=== PATIENT | female | born 1970 | race Caucasian/White ===

== ENCOUNTER 2016-07-20 17:47 | Outpatient (CLI) | payer OTHER | END 2016-07-20 17:48 | disposition home or self-care (01) | DX: J20.9 Acute bronchitis, unspecified (principal) ==

== ENCOUNTER 2017-06-18 07:54 | Outpatient (CLI) | payer OTHER ==
--- NOTE | 2017-06-19 10:22 | Mammography Report ---
DIGITAL SCREENING MAMMOGRAM: 06/21/2017 COMPARISON: 03/19/2013, 03/15/2010. TECHNIQUE: Bilateral digital CC, exaggerated CC and MLO projections. FINDINGS: The breast tissue is heterogeneously dense. There is no dominant mass, architectural disto rtion, skin thickening, suspicious microcalcifications, or interval change. IMPRESSION: NEGATIVE. BIRADS CATEGORY 1-NEGATIVE. RECOMMENDATION: SUGGEST ROUTINE ANNUAL SCREENING. STANDARD QUALIFYING STATEMENTS 1. This examination was reviewed with the aid of Computer-Aided Detection (CAD). 2. A negative or benign imaging report should not delay biopsy if clinically suspicious findings are present. Consider surgical consultation if warranted. More than 5% of cancers are not identified by i maging. 3. Dense breasts may obscure an underlying neoplasm. 10:9:26 JOB #: [id number] EXT JOB #:[id number]
== END 2017-06-18 07:55 | disposition home or self-care (01) ==
LOC: DI 07:54
PROVIDERS: ATTEND Obstetrics & Gynecology
DX: Z12.31 Encounter for screening mammogram for malignant neoplasm of breast (principal)
CPT/HCPCS: 77067

== ENCOUNTER 2017-10-02 09:15 | Outpatient (CLI) | payer OTHER ==
[2017-10-02 12:28] LABS: BASOPHILS # (AUTO) 0.1 10^3/uL (0.0-0.1); BASOPHILS % (AUTO) 1.8 %; EOSINOPHILS # (AUTO) 0.4 10^3/uL (0.0-0.7); EOSINOPHILS % (AUTO) 5.7 %; HGB - HEMOGLOBIN 14.4 g/dL (12.0-16.0); LYMPHOCYTES # (AUTO) 1.9 10^3/uL (1.5-3.5); LYMPHOCYTES % (AUTO) 26.3 %; MEAN CORPUSCULAR HEMOGLOBIN 29.9 pg (27.0-31.0); MEAN CORPUSCULAR HGB CONC 33.7 g/dL (32.0-36.0); MEAN CORPUSCULAR VOLUME 88.8 fL (81.0-99.0); MEAN PLATELET VOLUME 10.6 fL (7.9-10.8); MONOCYTES # (AUTO) 0.5 10^3/uL (0.0-1.0); MONOCYTES % (AUTO) 7.3 %; NEUTROPHILS # (AUTO) 4.3 10^3/uL (1.5-6.6); NEUTROPHILS % (AUTO) 58.9 %; PLT - PLATELET COUNT 233 10^3/uL (130-450); RED BLOOD COUNT 4.81 10^6/uL (4.20-5.40); RED CELL DISTRIBUTION WIDTH 13.9 % (12.0-15.0); WHITE BLOOD COUNT 7.3 x10^3/uL (4.8-10.8)
[2017-10-02 12:55] LABS: ALBUMIN 4.3 g/dL (3.2-5.5); ALBUMIN/GLOBULIN RATIO 1.7 (1.0-2.2); ALKALINE PHOSPHATASE 48 IU/L (42-121); ALT ALANINE AMINOTRANSFERASE 18 IU/L (10-60); AST ASPARTATE AMINOTRANSFERASE 25 IU/L (10-42); BILIRUBIN,TOTAL 0.7 mg/dL (0.2-1.0); BUN - BLOOD UREA NITROGEN 10 mg/dL (6-20); CARBON DIOXIDE - CO2 27 mmol/L (21-32); CHLORIDE 104 mmol/L (101-111); CHOL/HDL RATIO 2.6 (<4.4); CHOLESTEROL 226 mg/dL; CREATININE 0.8 mg/dL (0.4-1.0); GFR - MDRD 77 (>89); GLUCOSE 92 mg/dL (70-100); HDL CHOLESTEROL 86 mg/dL; LDL CHOLESTEROL,CALCULATED 119 mg/dL; LDL/HDL RATIO 1.4 (<4.4); SODIUM 137 mmol/L (135-145); TOTAL PROTEIN 6.9 g/dL (6.7-8.2); VLDL CHOLESTEROL 21 mg/dL
== END 2017-10-02 09:16 | disposition home or self-care (01) ==
LOC: LAB.WCP 09:15
PROVIDERS: ATTEND Family Medicine
DX: R01.1 Cardiac murmur, unspecified (principal)
CPT/HCPCS: 36415; 80053; 80061; 83721; 84443; 85025

== ENCOUNTER 2018-09-12 09:08 | Outpatient (CLI) | payer OTHER ==
--- NOTE | 2018-09-12 11:28 | XRAY Report ---
Reason: METATARSALGIA, LEFT Procedure Date: 09/12/2018 Accession Number: [id number] / [id number] Procedure: WCP - Foot 2 View LT CPT Code: FULL RESULT: EXAM: LEFT FOOT RADIOGRAPHY EXAM DATE: 09/12/2018 09:16 AM. CLINICAL HISTORY: Metatarsalgia, left. COMPARISON: None. TECHNIQUE: 2 views. FINDINGS: Bones: Mild posterior calcaneal spurring. Os trigonum is noted. Bipartite sesamoid. No fractures or bone lesions. Joints: Normal. No subluxations. Soft Tissues: Normal. No soft tissue swelling. IMPRESSION: No abnormality in the region of the metatarsals. RADIA
== END 2018-09-12 09:09 | disposition home or self-care (01) ==
LOC: DI.WCP 09:08
PROVIDERS: ATTEND Physician Assistant
DX: M77.42 Metatarsalgia, left foot (principal)

== ENCOUNTER 2019-01-21 08:00 | Outpatient (CLI) | payer OTHER ==
[2019-01-21 18:39] LABS: ALBUMIN 4.4 g/dL (3.2-5.5); ALBUMIN/GLOBULIN RATIO 1.5 (1.0-2.2); BILIRUBIN,TOTAL 1.1 mg/dL (0.2-1.0); CALCIUM 9.4 mg/dL (8.5-10.3); CREATININE 0.8 mg/dL (0.4-1.0); TOTAL PROTEIN 7.3 g/dL (6.7-8.2)
== END 2019-01-21 08:01 | disposition home or self-care (01) ==
LOC: LAB.WCP 08:00
PROVIDERS: ATTEND Family Medicine
DX: B35.1 Tinea unguium (principal)
CPT/HCPCS: 36415; 80053

== ENCOUNTER 2019-05-15 09:58 | Outpatient (CLI) | payer OTHER ==
[2019-05-15 10:18] LABS: BASOPHILS # (AUTO) 0.1 10^3/uL (0.0-0.1); BASOPHILS % (AUTO) 1.5 %; EOSINOPHILS # (AUTO) 0.7 10^3/uL (0.0-0.7); EOSINOPHILS % (AUTO) 9.9 %; HGB - HEMOGLOBIN 13.9 g/dL (12.0-16.0); LYMPHOCYTES # (AUTO) 1.9 10^3/uL (1.5-3.5); LYMPHOCYTES % (AUTO) 27.6 %; MEAN CORPUSCULAR HEMOGLOBIN 29.8 pg (27.0-31.0); MEAN CORPUSCULAR HGB CONC 32.4 g/dL (32.0-36.0); MEAN CORPUSCULAR VOLUME 92.1 fL (81.0-99.0); MEAN PLATELET VOLUME 11.1 fL (7.9-10.8); MONOCYTES # (AUTO) 0.6 10^3/uL (0.0-1.0); MONOCYTES % (AUTO) 8.4 %; NEUTROPHILS # (AUTO) 3.6 10^3/uL (1.5-6.6); NEUTROPHILS % (AUTO) 52.3 %; PLT - PLATELET COUNT 251 10^3/uL (130-450); RED BLOOD COUNT 4.66 10^6/uL (4.20-5.40); RED CELL DISTRIBUTION WIDTH 13.2 % (12.0-15.0); WHITE BLOOD COUNT 6.8 x10^3/uL (4.8-10.8)
[2019-05-15 10:38] LABS: CHOL/HDL RATIO 2.7 (<4.4); CHOLESTEROL 221 mg/dL; HDL CHOLESTEROL 83 mg/dL; LDL CHOLESTEROL,CALCULATED 128 mg/dL; LDL/HDL RATIO 1.5 (<4.4); VLDL CHOLESTEROL 10 mg/dL
== END 2019-05-15 09:59 | disposition home or self-care (01) ==
LOC: LAB 09:58
PROVIDERS: ATTEND Physician Assistant Medical
DX: J45.909 Unspecified asthma, uncomplicated (principal); R10.13 Epigastric pain; R01.1 Cardiac murmur, unspecified
CPT/HCPCS: 36415; 80061; 83721; 84443; 85025

== ENCOUNTER 2019-07-02 07:47 | Outpatient (CLI) | payer OTHER | END 2019-07-02 07:48 | disposition home or self-care (01) | LOC: DI 07:47 | PROVIDERS: ATTEND Physician Assistant Medical | DX: R01.1 Cardiac murmur, unspecified (principal); I34.0 Nonrheumatic mitral (valve) insufficiency | CPT/HCPCS: 93306 ==

== ENCOUNTER 2019-07-02 07:50 | Outpatient (CLI) | payer OTHER ==
--- NOTE | 2019-07-06 08:32 | Mammography Report ---
Reason: ROUTINE MAMMO Procedure Date: 07/02/2019 Accession Number: [id number] / [id number] Procedure: [facility] - Screening Mammo w/[facility] CPT Code: Final Report FULL RESULT: EXAM: Screening Mammo w/[facility] DATE: 07/02/2019 9:14 AM CLINICAL HISTORY: Screening encounter. TECHNIQUE: (B) - Bilateral CC, laterally exaggerated CC, MLO views were obtained. COMPARISON: 06/18/2017 through 03/15/2010. PARENCHYMAL PATTERN: (D) - The breast(s) demonstrate(s) heterogeneously dense fibroglandular parenchyma. FINDINGS: There are no suspicious masses, calcifications, or areas of distortion. IMPRESSION: Negative examination. BI-RADS category 1. RECOMMENDATION: (ANNUAL) - Recommend routine annual screening mammography. BI-RADS CATEGORY: (1) - Negative. STANDARD QUALIFYING STATEMENTS: 1. This examination was not reviewed with the aid of Computer-Aided Detection (CAD). 2. A negative or benign imaging report should not preclude biopsy if clinically suspicious findings are present. 3. Dense breasts may obscure an underlying neoplasm. 4. This examination was reviewed with the aid of 3D breast imaging (tomosynthesis).
== END 2019-07-02 07:51 | disposition home or self-care (01) ==
LOC: DI 07:50
DX: Z12.31 Encounter for screening mammogram for malignant neoplasm of breast (principal)
CPT/HCPCS: 77063; 77067

== ENCOUNTER 2019-12-06 09:14 | Outpatient (CLI) | payer OTHER | END 2019-12-06 09:15 | disposition home or self-care (01) | LOC: RT 09:14 | PROVIDERS: ATTEND Physician Assistant Medical | DX: J45.909 Unspecified asthma, uncomplicated (principal) | CPT/HCPCS: 94010 ==

== ENCOUNTER 2020-03-22 18:09 | Outpatient (CLI) | payer OTHER ==
--- NOTE | 2020-03-23 10:12 | XRAY Report ---
PROCEDURE: Chest 2 View X-Ray INDICATIONS: COUGH TECHNIQUE: 2 view(s) of the chest. COMPARISON: None. FINDINGS: Surgical changes and devices: None. Lungs and pleura: No pleural effusions or pneumothorax. Increased microvascular markings in bilatera l hilar region are seen with mild bronchial wall thickening. No focal infiltrate. Mediastinum: Mediastinal contours are normal. Heart size is normal. Bones and chest wall: No suspicious bony abnormalities. Soft tissues appear unremarkable. IMPRESSION: Suggestion of mild reactive airway disease such as bronchitis or asthma. No focal infiltr ate. Reviewed by: Jeronimo Claire MD on 03/23/2020 10:11 AM PDT Approved by: Jeronimo Claire MD on 03/23/2020 10:11 AM PDT Station ID: [id number]
== END 2020-03-22 18:10 | disposition home or self-care (01) ==
LOC: DI 18:09
PROVIDERS: ATTEND Nurse Practitioner Family
DX: R91.8 Other nonspecific abnormal finding of lung field (principal)
CPT/HCPCS: 71046

== ENCOUNTER 2020-07-21 16:41 | Outpatient (CLI) | payer OTHER ==
--- NOTE | 2020-07-22 09:03 | XRAY Report ---
PROCEDURE: Chest 2 View X-Ray INDICATIONS: COUGH TECHNIQUE: 2 view(s) of the chest. COMPARISON: None. FINDINGS: Surgical changes and devices: None. Lungs and pleura: No pleural effusions or pneumothorax. Lungs are clear. Mediastinum: Mediastinal contours are normal. Heart size is normal. Bones and chest wall: No suspicious bony abnormalities. Soft tissues appear unremarkable. IMPRESSION: No acute cardiopulmonary process. Reviewed by: Jeronimo Claire MD on 07/22/2020 9:02 AM [facility] Approved by: Jeronimo Claire MD on 07/22/2020 9:02 AM [facility] Station ID: [id number]
== END 2020-07-21 23:59 | disposition home or self-care (01) ==
LOC: DI.N 16:41
PROVIDERS: ATTEND Family Medicine
DX: R05 Cough (principal); R06.00 Dyspnea, unspecified; Z20.828 Contact with and (suspected) exposure to other viral communicable diseases
CPT/HCPCS: 87275; 87276

== ENCOUNTER 2020-09-03 08:00 | Outpatient (CLI) | payer OTHER | END 2020-09-03 23:59 | disposition home or self-care (01) | LOC: LAB.R 08:00 | PROVIDERS: ATTEND Physician Assistant Medical | DX: J45.901 Unspecified asthma with (acute) exacerbation (principal); Z20.822 Contact with and (suspected) exposure to COVID-19 | CPT/HCPCS: 87275; 87276 ==

== ENCOUNTER 2020-11-10 19:25 | Emergency (ER) | payer OTHER ==
--- OUTSIDE RECORDS SUMMARY | 2020-11-10 19:47 | EXTERNAL MEDICAL SUMMARY RPT | Continuity of Care Document ---
:1970 Demographics Phone Unavailable Preferred Language Unknown Marital Status Unknown Episcopal Affiliation Unknown Race Unknown Ethnic Group Unknown Author Organization [place] Address [address] [place] [address] Phone Social History date description facility [id number]
[2020-11-10] MEDS ORDERED: ALBUTEROL NEB 2.5 MG/3 ML INH STA (20:11)
[2020-11-10] MEDS ORDERED: IPRATROPIUM 0.2 MG/ML NEB INH STA (20:11)
--- NOTE | 2020-11-10 20:18 | ED Physician Documentation ---
History of Present Illness - Stated complaint Stated Complaint: SOA - Chief complaint Chief Complaint: Resp - Additonal information Additional information: 50-year-old female presents the emergency department for evaluation of her asthma exacerbation. She reports a longstanding history of asthma that has been typically very difficult to control. She is currently taking Spiriva and Advair daily. Her flush tester recently started her on Dupixent and she received her fourth injection last week. She states that over the last week she has been having to use her nebulizers at home at least 2-3 times a day. She is short of breath with exertion and has a wet cough. She denies any fevers. non smoker meds: spiriva, advair, singulair, dupixent Review of Systems Constitutional: denies: Fever, Chills Eyes: reports: Reviewed and negative Ears: reports: Reviewed and negative Nose: reports: Reviewed and negative Throat: reports: Reviewed and negative Cardiac: denies: Chest pain / pressure, Palpitations Respiratory: reports: Dyspnea, Cough, Wheezing. denies: Hemoptysis GI: denies: Abdominal Pain, Abdominal Swelling, Nausea : denies: Dysuria, Frequency, Hesitancy Skin: denies: Rash, Lesions PD PAST MEDICAL HISTORY - Past Medical History Past Medical History: Yes Respiratory: Asthma - Past Surgical History Past Surgical History: Yes - Present Medications Home Medications: Ambulatory Orders Medication Instructions Recorded Confirmed ALPRAZolam [Alprazolam] 0.5 mg PO 11/10/20 Albuterol 2.5 mg INH Q4H PRN 11/10/20 11/10/20 Albuterol 2.5 mg INH Q4H PRN #30 ml 11/10/20 Azithromycin [Zithromax] 0 mg PO DAILY #6 tablet 11/10/20 Dupilumab [Dupixent Syringe] 300 mg SQ 11/10/20 Montelukast [Singulair] 10 mg PO QPM 11/10/20 11/10/20 Tiotropium [place] [Spiriva] 1 puffs INH DAILY 11/10/20 11/10/20 predniSONE [Deltasone] 40 mg PO DAILY 4 Days #8 tablet 11/10/20 - Allergies Allergies/Adverse Reactions: Allergies Allergy/AdvReac Type Severity Reaction Status Date / Time No Known Drug Allergies Allergy Verified 11/10/20 19:31 - Social History Does the pt smoke?: No Smoking Status: Never smoker Does the pt drink ETOH?: Yes - Immunizations Immunizations are current?: Yes PD ED PE EXPANDED - General General: Alert, No acute distress - Cardiac Cardiac: Regular Rate, Radial strong equal, Cap refill < 2 sec. No: Murmur Present - Respiratory Respiratory: Wheezing (rhoncorous upper air with diffuse expiratory wheezing lower lung wilkes), Rhonchi. No: Stridor - Abdomen Abdomen: Normal Bowel sounds. No: Tender to palpation - Derm Derm: Normal color, Warm and dry. No: Rash - Extremities Extremities: Normal. No: Deformity, Tenderness - Neuro Neuro: Alert and Oriented X 3, CNII-XII intact - GCS Eye Opening: Spontaneous Motor: Obeys Commands Verbal: Oriented Total: 15 Results - Vitals Vitals: Vital Signs - 24 hr 11/10/20 11/10/20 11/10/20 19:31 20:10 21:05 Temperature 36.6 C Heart Rate 88 75 67 Respiratory 16 20 Rate Blood Pressure 126/84 H O2 Saturation 98 100 Oxygen O2 Source Room air - Rads (name of study) CXR Radiology: Final report received (No acute cardiopulmonary process.) PD MEDICAL DECISION MAKING - ED course Complexity details: reviewed results, re-evaluated patient, d/w patient ED course: 50-year-old female presents the emergency department for evaluation of worsening asthma. She has a longstanding history of asthma and is managed currently on Advair and Spiriva but recently started Dupixent. Over the last week she has been having to use her nebulizers at home 2-3 times a day. She also has a new wet productive cough. Radiology report reads chest x-ray is negative however I feel that there is likely a small linear opacity in the right lower lobe that may reflect an early pneumonia. Patient does not have fever. Given this she will be started on a course of azithromycin. I will also start her on a 5-day course of oral steroids prednisone (first dose given in the ED) Patient was given albuterol and Atrovent here in the emergency department and following these nebulizers she had marked improvement in her symptoms. Covid screen pending. Emergent return precautions discussed Departure - Departure Disposition: 01 Home, Self Care Clinical Impression: Asthma with acute exacerbation in adult Qualifiers: Asthma severity: moderate Asthma persistence: persistent Qualified Code(s): J45.41 - Moderate persistent asthma with (acute) exacerbation Condition: Stable Record reviewed to determine appropriate education?: Yes Follow-Up: Maegan Sunshine PA-C [Primary Care Provider] - Prescriptions: Albuterol 2.5 mg INH Q4H PRN #30 ml PRN Reason: Wheezing predniSONE [Deltasone] 40 mg PO DAILY 4 Days #8 tablet Azithromycin [Zithromax] 0 mg PO DAILY #6 tablet Comments: You were seen in the emergency department today for cough, shortness of breath and wheeze. As we discussed the radiologist interprets your x-ray is normal however I do feel that there is a linear opacity in the right lower lung that I feel is consistent with an early pneumonia. Because of this I have written a prescription for an antibiotic called azithromycin. Your first dose was given here in the emergency department. Please fill the Z-Rojelio tomorrow and take as directed. I also feel that you are having an acute asthma exacerbation despite being on the Dupixent. You were given your first dose of oral steroids here in the emergency department. Please fill the remaining prescription for an additional 4 days. I have written a prescription for albuterol nebulizer solution. I do recommend that you use this once or twice a day before you use your Atrovent. This is a quick acting nebulizer and will allow the long acting nebulizer to be more effective. If you feel that your cough or shortness of breath is worsening despite the steroids, antibiotics and use of the nebulizer at home please return immediately to the emergency department.
[2020-11-10] MEDS ORDERED: predniSONE 20 MG TABLET PO STA (20:28)
--- NOTE | 2020-11-10 20:31 | XRAY Report ---
PROCEDURE: Chest 1 View X-Ray INDICATIONS: SOA TECHNIQUE: One view of the chest was acquired. COMPARISON: Chest radiographs 07/21/2020 FINDINGS: Surgical changes and devices: None. Lungs and pleura: No pleural effusions or pneumothorax. Lungs are clear. Mediastinum: Mediastinal contours appear normal. Heart size is normal. Bones and chest wall: No suspicious bony lesions. Overlying soft tissues appear unremarkable. IMPRESSION: No acute cardiopulmonary abnormality. Reviewed by: Derrick Mendoza MD on 11/10/2020 8:30 PM PDT Approved by: Derrick Mendoza MD on 11/10/2020 8:30 PM PDT Station ID: [id number]
[2020-11-10] MEDS ORDERED: AZITHROMYCIN 250 MG TABLET PO STA ×2 (20:39→20:40)
[2020-11-10 21:41] VITALS: BP 142/79
== END 2020-11-10 21:40 | disposition home or self-care (01) ==
LOC: ED 19:25
DX: J45.41 Moderate persistent asthma with (acute) exacerbation (principal); Z20.822 Contact with and (suspected) exposure to COVID-19
CPT/HCPCS: 71045; 87635; 94640; 99284; A9270; J7512

== ENCOUNTER 2021-04-04 08:56 | Day surgery (SDC) | payer OTHER ==
[2021-04-04] MEDS ORDERED: LACTATED RINGERS 1,000 ML IV ONE ×2 (09:00→12:45)
[2021-04-04] MEDS ORDERED: ALBUTEROL NEB 2.5 MG/3 ML INH ONE (09:31)
[2021-04-04] MEDS ORDERED: MIDAZOLAM 2 MG/2 ML VIAL ONE ×5 (11:08→11:48)
[2021-04-04] MEDS ORDERED: fentaNYL 250 MCG/5 ML VIAL ONE (11:08)
[2021-04-04 12:50] VITALS: BP 119/81
== END 2021-04-04 08:57 | disposition home or self-care (01) ==
LOC: SDS 08:56
PROVIDERS: ATTEND Surgery
PROC: 0DBK8ZZ Excision of Ascending Colon, Via Natural or Artificial Opening Endoscopic (ICD-10-PCS; principal; 2021-04-04 10:00)
DX: Z12.11 Encounter for screening for malignant neoplasm of colon (principal); D12.2 Benign neoplasm of ascending colon; K57.30 Diverticulosis of large intestine without perforation or abscess without bleeding; K64.8 Other hemorrhoids; I34.0 Nonrheumatic mitral (valve) insufficiency; J45.909 Unspecified asthma, uncomplicated
CPT/HCPCS: 45380; J3010; J7120

== ENCOUNTER 2021-05-04 08:26 | Outpatient (CLI) | payer OTHER ==
[2021-05-04 08:59] LABS: BASOPHILS # (AUTO) 0.1 10^3/uL (0.0-0.1); BASOPHILS % (AUTO) 1.8 %; EOSINOPHILS # (AUTO) 0.3 10^3/uL (0.0-0.7); HCT - HEMATOCRIT 46.4 % (37.0-47.0); HGB - HEMOGLOBIN 14.8 g/dL (12.0-16.0); LYMPHOCYTES # (AUTO) 1.5 10^3/uL (1.5-3.5); MEAN CORPUSCULAR HEMOGLOBIN 29.8 pg (27.0-31.0); MEAN CORPUSCULAR HGB CONC 31.9 g/dL (32.0-36.0); MEAN CORPUSCULAR VOLUME 93.5 fL (81.0-99.0); MEAN PLATELET VOLUME 10.7 fL (7.9-10.8); MONOCYTES # (AUTO) 0.5 10^3/uL (0.0-1.0); MONOCYTES % (AUTO) 8.3 %; NEUTROPHILS # (AUTO) 3.7 10^3/uL (1.5-6.6); NEUTROPHILS % (AUTO) 59.6 %; PLT - PLATELET COUNT 269 10^3/uL (130-450); RED BLOOD COUNT 4.96 10^6/uL (4.20-5.40); WHITE BLOOD COUNT 6.2 x10^3/uL (4.8-10.8)
[2021-05-04 09:14] LABS: ALBUMIN 4.2 g/dL (3.2-5.5); ALBUMIN/GLOBULIN RATIO 1.6 (1.0-2.2); ALKALINE PHOSPHATASE 60 IU/L (42-121); ALT ALANINE AMINOTRANSFERASE 22 IU/L (10-60); AST ASPARTATE AMINOTRANSFERASE 26 IU/L (10-42); BILIRUBIN,TOTAL 0.8 mg/dL (0.2-1.0); BUN - BLOOD UREA NITROGEN 10 mg/dL (6-20); CALCIUM 9.4 mg/dL (8.5-10.3); CARBON DIOXIDE - CO2 29 mmol/L (21-32); CHLORIDE 105 mmol/L (101-111); CHOL/HDL RATIO 2.5 (<4.4); CHOLESTEROL 223 mg/dL; CREATININE 0.8 mg/dL (0.4-1.0); GFR - MDRD 76 (>89); GLUCOSE 91 mg/dL (70-100); HDL CHOLESTEROL 89 mg/dL; LDL CHOLESTEROL,CALCULATED 120 mg/dL; LDL/HDL RATIO 1.3 (<4.4); POTASSIUM 4.5 mmol/L (3.5-5.0); SODIUM 141 mmol/L (135-145); TOTAL PROTEIN 6.9 g/dL (6.7-8.2); TRIGLYCERIDES 68 mg/dL; VLDL CHOLESTEROL 14 mg/dL
[2021-05-04 09:25] LABS: THYROID STIMULATING HORMONE 1.8 uIU/mL (0.34-5.60)
== END 2021-05-04 08:27 | disposition home or self-care (01) ==
LOC: LAB 08:26
PROVIDERS: ATTEND Physician Assistant Medical
DX: Z00.00 Encounter for general adult medical examination without abnormal findings (principal)
CPT/HCPCS: 36415; 80053; 80061; 83721; 84443; 85025

== ENCOUNTER 2021-05-11 13:36 | Outpatient (CLI) | payer OTHER ==
--- NOTE | 2021-05-12 09:11 | Mammography Report ---
BILATERAL DIGITAL SCREENING MAMMOGRAM 3D/2D: 05/11/2021 CLINICAL: Routine screening. Comparison is made to exams dated: 07/02/2019 mammogram, 06/18/2017 mammogram, and 03/19/2013 mammogram - [facility]. The tissue of both breasts is heterogeneously dense. This may lower the sensitivity of mammography. No significant masses, calcifications, or other findings are seen in either breast. There has been no significant interval change. IMPRESSION: NEGATIVE There is no mammographic evidence of malignancy. A 1 year screening mammogram is recommended. This exam was interpreted at Station ID: [id number]. NOTE: For mammograms, a report in lay terms will be sent to the patient. Approximately 15% of breast malignancies will not be visualized mammographically. In the management of a palpable breast mass, a negative mammogram must not discourage biopsy of a clinically suspicious lesion. Electronically Signed By: Rashel Delarosa M.D. slc/penrad:05/11/2021 17:01:40 ACR BI-RADS Category 1: Negative 3341F PARENCHYMAL PATTERN: (D) - The breast(s) demonstrate(s) heterogeneously dense fibroglandular dony castañeda. BI-RADS CATEGORY: (1) - 1 RECOMMENDATION: (ANNUAL) - Recommend routine annual screening mammography. [id number] 1 year screening LATERALITY: (B)
== END 2021-05-11 13:37 | disposition home or self-care (01) ==
LOC: DI 13:36
DX: Z12.31 Encounter for screening mammogram for malignant neoplasm of breast (principal)

== ENCOUNTER 2021-06-26 18:28 | Outpatient (CLI) | payer OTHER ==
--- NOTE | 2021-06-27 10:12 | XRAY Report ---
PROCEDURE: Foot 3 View LT INDICATIONS: CONTUSION OF L 5TH TOE TECHNIQUE: 3 views of the foot were acquired. COMPARISON: Left foot radiographs 09/12/2018. FINDINGS: Bones: No acute fractures or dislocations. No suspicious bony lesions. Small posterior and plantar calcaneal enthesophytes. Soft tissues: Soft tissue tissue edema is seen in the fifth toe. IMPRESSION: No acute osseous abnormality. If there is clinical concern or persistent symptoms, additional imaging such as repeat radiographs or advanced imaging (e.g. CT, MRI) may be helpful for further evaluation. Reviewed by: Derrick Mendoza MD on 06/27/2021 10:11 AM [facility] Approved by: Derrick Mendoza MD on 06/27/2021 10:11 AM [facility] Station ID: [id number]
== END 2021-06-26 23:59 | disposition home or self-care (01) ==
LOC: DI.N 18:28
PROVIDERS: ATTEND Physician Assistant Medical
DX: S90.122A Contusion of left lesser toe(s) without damage to nail, initial encounter (principal)

== ENCOUNTER 2021-08-23 19:07 | Outpatient (CLI) | payer OTHER ==
--- NOTE | 2021-08-24 16:08 | XRAY Report ---
PROCEDURE: Chest 2 View X-Ray INDICATIONS: MITRAL VALVE REGURGITATION TECHNIQUE: 2 view(s) of the chest. COMPARISON: Chest x-ray 11/10/2020 FINDINGS: Surgical changes and devices: None. Lungs and pleura: No pleural effusions or pneumothorax. Lungs are clear. Mediastinum: Mediastinal contours are normal. Heart size is normal. Bones and chest wall: No suspicious bony abnormalities. Soft tissues appear unremarkable. IMPRESSION: No acute pulmonary process. Reviewed by: So Deal MD on 08/24/2021 4:07 PM [facility] Approved by: So Deal MD on 08/24/2021 4:07 PM [facility] Station ID: [id number]
== END 2021-08-23 23:59 | disposition home or self-care (01) ==
LOC: DI.N 19:07
PROVIDERS: ATTEND Family Medicine
DX: R06.2 Wheezing (principal); J18.9 Pneumonia, unspecified organism; Z20.822 Contact with and (suspected) exposure to COVID-19

== ENCOUNTER 2021-09-01 07:45 | Outpatient (CLI) | payer OTHER | END 2021-09-01 07:46 | disposition home or self-care (01) | LOC: DI 07:45 | PROVIDERS: ATTEND Physician Assistant Medical | DX: I34.0 Nonrheumatic mitral (valve) insufficiency (principal) | CPT/HCPCS: 93306 ==

== ENCOUNTER 2021-11-14 00:01 | Outpatient (CLI) | payer OTHER | END 2021-11-14 23:59 | disposition home or self-care (01) | LOC: LAB.N 00:01 | PROVIDERS: ATTEND Registered Nurse | DX: J45.51 Severe persistent asthma with (acute) exacerbation (principal); J18.9 Pneumonia, unspecified organism; Z20.822 Contact with and (suspected) exposure to COVID-19 ==

== ENCOUNTER 2021-12-01 12:25 | Outpatient (CLI) | payer OTHER ==
--- NOTE | 2021-12-01 14:38 | XRAY Report ---
PROCEDURE: Chest 2 View X-Ray INDICATIONS: PERSISTENT COUGH TECHNIQUE: 2 view(s) of the chest. COMPARISON: None. FINDINGS: Surgical changes and devices: None. Lungs and pleura: No pleural effusions or pneumothorax. Lungs are clear. Mediastinum: Mediastinal contours are normal. Heart size is normal. Bones and chest wall: No suspicious bony abnormalities. Soft tissues appear unremarkable. IMPRESSION: Normal two-view chest x-ray Reviewed by: Juan José Walden MD on 12/01/2021 1:37 PM [facility] Approved by: Juan José Walden MD on 12/01/2021 1:37 PM [facility] Station ID: [id number]
== END 2021-12-01 12:26 | disposition home or self-care (01) ==
LOC: DI.N 12:25
PROVIDERS: ATTEND Physician Assistant Medical
DX: R05.3 Chronic cough (principal)

== ENCOUNTER 2021-12-06 10:57 | Emergency (ER) | payer OTHER ==
[2021-12-06] MEDS ORDERED: SODIUM CHLORIDE INHALATION 3 ML NEB INH STA (12:28)
--- NOTE | 2021-12-06 12:31 | ED Physician Documentation ---
PD HPI DYSPNEA - Stated complaint Stated Complaint: SOA - Chief complaint Chief Complaint: Resp - History obtained from History obtained from: Patient - Additional information Additional information: 51-year-old woman with severe persistent asthma albeit never admitted for same. 3 weeks ago got sick with cough productive of green sputum and shortness of breath and wheezing. Subsequently was on a course of doxycycline and prednisone and she improved but has been lingering and developed a fever again 5 days ago despite a negative chest x-ray 6 days ago. Still has significant cough but is minimally productive at this point. Denies pedal edema or calf pain. No shortness of breath. 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 She went to urgent care today and was referred here for further evaluation and treatment. Review of Systems Constitutional: reports: Reviewed and negative Throat: reports: Reviewed and negative Cardiac: reports: Reviewed and negative Respiratory: reports: Dyspnea, Cough PD PAST MEDICAL HISTORY - Past Medical History Cardiovascular: None Respiratory: Asthma Endocrine/Autoimmune: None GI: Hemorrhoids : None HEENT: None Psych: None Musculoskeletal: None Derm: None - Past Surgical History Past Surgical History: Yes HEENT: Other - Present Medications Home Medications: Ambulatory Orders Medication Instructions Recorded Confirmed Albuterol 2.5 mg INH Q4H PRN 11/10/20 04/04/21 Albuterol 2.5 mg INH Q4H PRN #30 ml 11/10/20 04/04/21 Dupilumab [Dupixent Syringe] 300 mg SQ MAINTENANCE.IV 11/10/20 04/04/21 Montelukast [Singulair] 10 mg PO QPM 11/10/20 04/04/21 Tiotropium Roby [Spiriva] 1 puffs INH DAILY 11/10/20 04/04/21 Fluticasone/Salmeterol [Advair Hfa 8 gm IH DAILY 04/04/21 04/04/21 115-21 Mcg Inhaler] Amox/Clav 875/125 [Augmentin] 1 each PO Q12H #20 tablet 12/06/21 predniSONE [Deltasone] 20 mg PO [id number] #21 tab 12/06/21 - Allergies Allergies/Adverse Reactions: Allergies Allergy/AdvReac Type Severity Reaction Status Date / Time No Known Drug Allergies Allergy Verified 12/06/21 11:10 - Social History Does the pt smoke?: No Smoking Status: Never smoker Does the pt drink ETOH?: Yes - Immunizations Immunizations are current?: Yes PD ED PE NORMAL - Vitals Vital signs reviewed: Yes - General General: Alert and oriented X 3, No acute distress - Cardiac Cardiac: RRR, No murmur - Respiratory Respiratory: No respiratory distress, Other (Squeaky wheezes at the bases more than the apices. Symmetric without focal findings) - Abdomen Abdomen: Non tender - Neuro Neuro: Alert and oriented X 3, Normal speech - Psych Psych: Normal mood, Normal affect Results - Vitals Vitals: Vital Signs - 24 hr 12/06/21 11:05 Temperature 37.1 C Heart Rate 83 Respiratory 18 Rate Blood Pressure 132/80 H O2 Saturation 99 Oxygen O2 Source Room air PD MEDICAL DECISION MAKING - ED course ED course: 51-year-old woman with bronchitis/incompletely treated pneumonia in the setting of underlying severe asthma. We will attempt to get a respiratory culture after a saline neb. Departure - Departure Disposition: 01 Home, Self Care Clinical Impression: Pneumonia Qualifiers: Pneumonia type: due to unspecified organism Laterality: bilateral Lung location: lower lobe of lung Qualified Code(s): J18.9 - Pneumonia, unspecified organism Condition: Good Record reviewed to determine appropriate education?: Yes Instructions: Pneumonia Dc Prescriptions: Amox/Clav 875/125 [Augmentin] 1 each PO Q12H #20 tablet predniSONE [Deltasone] 20 mg PO [id number] #21 tab Comments: I sent your prescription electronically to [facility] in [place]. Return for new or worsening symptoms. Follow-up with your plant anatomy teacher if not improving.
[2021-12-06 12:39] VITALS: BP 131/88
== END 2021-12-06 13:00 | disposition home or self-care (01) ==
LOC: ED 10:57
DX: J18.9 Pneumonia, unspecified organism (principal)
CPT/HCPCS: 87070; 87205; 94640; 99283; 99284

== ENCOUNTER 2022-05-18 08:44 | Outpatient (CLI) | payer OTHER ==
--- NOTE | 2022-05-18 15:18 | Mammography Report ---
BILATERAL DIGITAL SCREENING MAMMOGRAM 3D/2D: 05/18/2022 CLINICAL: Routine screening. Comparison is made to exams dated: 05/11/2021 mammogram, 07/02/2019 mammogram, 06/18/2017 mammogram, and 03/19/2013 mammogram - [facility]. Both breasts are heterogeneously dense, which may obscure small masses (category c / 51-75% glandular tissue). No significant masses, calcifications, or other findings are seen in either breast. There has been no significant interval change. IMPRESSION: NEGATIVE There is no mammographic evidence of malignancy. A 1 year screening mammogram is recommended. Based on the Tyrer Cuzick model (a risk assessment model) the patients lifetime risk is 11.0% and he r 10 year risk is 2.8%. According to the ACR, ACS, and NCCN guidelines, an annual breast MRI exam magnus ng with mammogram is recommended if the patients lifetime risk is 20% or greater. This exam was interpreted at Station ID: [id number]. NOTE: For mammograms, a report in lay terms will be sent to the patient. Approximately 15% of breast malignancies will not be visualized mammographically. In the management of a palpable breast mass, a negative mammogram must not discourage biopsy of a clinically suspicious lesion. Electronically Signed By: Maurilio Truong M.D., jr/konrad:05/18/2022 12:55:35 ACR BI-RADS Category 1: Negative 3341F PARENCHYMAL PATTERN: (D) - The breast(s) demonstrate(s) heterogeneously dense fibroglandular parcarleyy ma. BI-RADS CATEGORY: (1) - 1 RECOMMENDATION: (ANNUAL) - Recommend routine annual screening mammography. [id number] 1 year screening LATERALITY: (B)
== END 2022-05-18 08:45 | disposition home or self-care (01) ==
LOC: DI 08:44
DX: Z12.31 Encounter for screening mammogram for malignant neoplasm of breast (principal)

== ENCOUNTER 2022-07-11 09:12 | Outpatient (CLI) | payer OTHER ==
[2022-07-11 09:20] LABS: BASOPHILS # (AUTO) 0.1 10^3/uL (0.0-0.1); BASOPHILS % (AUTO) 0.7 %; HCT - HEMATOCRIT 45.2 % (37.0-47.0); HGB - HEMOGLOBIN 14.8 g/dL (12.0-16.0); LYMPHOCYTES % (AUTO) 23.8 %; MEAN CORPUSCULAR HEMOGLOBIN 29.5 pg (27.0-31.0); MEAN CORPUSCULAR HGB CONC 32.7 g/dL (32.0-36.0); MEAN CORPUSCULAR VOLUME 90.2 fL (81.0-99.0); MEAN PLATELET VOLUME 10.5 fL (7.9-10.8); MONOCYTES # (AUTO) 0.8 10^3/uL (0.0-1.0); MONOCYTES % (AUTO) 9.6 %; NEUTROPHILS # (AUTO) 5.5 10^3/uL (1.5-6.6); NEUTROPHILS % (AUTO) 65.7 %; PLT - PLATELET COUNT 306 10^3/uL (130-450); RED BLOOD COUNT 5.01 10^6/uL (4.20-5.40); WHITE BLOOD COUNT 8.4 x10^3/uL (4.8-10.8)
[2022-07-11 09:44] LABS: ALBUMIN 3.9 g/dL (3.2-5.5); ALBUMIN/GLOBULIN RATIO 1.2 (1.0-2.2); ALKALINE PHOSPHATASE 64 IU/L (42-121); ALT ALANINE AMINOTRANSFERASE 24 IU/L (10-60); AST ASPARTATE AMINOTRANSFERASE 24 IU/L (10-42); BILIRUBIN,TOTAL 0.5 mg/dL (0.2-1.0); BUN - BLOOD UREA NITROGEN 9 mg/dL (6-20); CALCIUM 9.3 mg/dL (8.5-10.3); CARBON DIOXIDE - CO2 30 mmol/L (21-32); CHLORIDE 103 mmol/L (101-111); CHOL/HDL RATIO 3.3 (<4.4); CHOLESTEROL 244 mg/dL; CREATININE 0.8 mg/dL (0.4-1.0); GFR - MDRD 75 (>89); GLUCOSE 98 mg/dL (70-100); HDL CHOLESTEROL 74 mg/dL; LDL CHOLESTEROL,CALCULATED 151 mg/dL; POTASSIUM 4.1 mmol/L (3.5-5.0); SODIUM 141 mmol/L (135-145); TOTAL PROTEIN 7.1 g/dL (6.7-8.2); TRIGLYCERIDES 96 mg/dL; VLDL CHOLESTEROL 19 mg/dL
[2022-07-11 09:56] LABS: THYROID STIMULATING HORMONE 1.96 uIU/mL (0.34-5.60)
== END 2022-07-11 09:13 | disposition home or self-care (01) ==
LOC: LAB 09:12
PROVIDERS: ATTEND Physician Assistant Medical
DX: Z00.00 Encounter for general adult medical examination without abnormal findings (principal)
CPT/HCPCS: 36415; 80053; 80061; 83721; 84443; 85025

== ENCOUNTER 2022-10-25 08:20 | Outpatient (CLI) | payer OTHER ==
--- NOTE | 2022-10-25 15:10 | DEXA Report ---
PROCEDURE: Dexa Spine and/or Hip INDICATIONS: POST MENOPAUSAL TECHNIQUE: Dual energy x-ray absorptiometry (DXA) was performed on a Plexx System. Regions measur ed are the AP Spine, femoral neck, and if needed forearm. COMPARISON: None. FINDINGS: Lumbar Spine: Bone Mineral Density 0.931 g/cm/cm,T score -2.1. Left Femoral Neck: Bone Mineral Density 0.784 g/cm/cm, T score -1.8, Left Hip: Bone Mineral Density 0.788 g/cm/cm,T score -1.7. (T score greater or equal to -1.0: NORMAL) (T score from -1.1 to -2.4: OSTEOPENIA) (T score less than or equal to -2.5 to: OSTEOPOROSIS) Impression: Osteopenia. Patients with diagnosis of osteoporosis or osteopenia should have regular bone mineral density assess ment. For those eligible for Medicare, routine testing is allowed once every 2 years. Testing frequ ency can be increased for patients who have rapidly progressing disease or for those who are receivin g medical therapy to restore bone mass. Reviewed by: Jeronimo Claire MD on 10/25/2022 3:08 PM PDT Approved by: Jeronimo Claire MD on 10/25/2022 3:08 PM PDT Station ID: [id number]
== END 2022-10-25 08:21 | disposition home or self-care (01) ==
LOC: DI 08:20
PROVIDERS: ATTEND Physician Assistant Medical
DX: Z78.0 Asymptomatic menopausal state (principal); M85.89 Other specified disorders of bone density and structure, multiple sites

== ENCOUNTER 2023-07-31 09:24 | Outpatient (CLI) | payer OTHER ==
[2023-07-31 09:38] LABS: BASOPHILS # (AUTO) 0.1 10^3/uL (0.0-0.1); BASOPHILS % (AUTO) 1.1 %; EOSINOPHILS # (AUTO) 0.2 10^3/uL (0.0-0.7); EOSINOPHILS % (AUTO) 2.1 %; HCT - HEMATOCRIT 48.2 % (37.0-47.0); HGB - HEMOGLOBIN 14.9 g/dL (12.0-16.0); LYMPHOCYTES # (AUTO) 1.4 10^3/uL (1.5-3.5); LYMPHOCYTES % (AUTO) 19.4 %; MEAN CORPUSCULAR HEMOGLOBIN 28.7 pg (27.0-31.0); MEAN CORPUSCULAR HGB CONC 30.9 g/dL (32.0-36.0); MEAN CORPUSCULAR VOLUME 92.7 fL (81.0-99.0); MEAN PLATELET VOLUME 10.3 fL (7.9-10.8); MONOCYTES # (AUTO) 0.7 10^3/uL (0.0-1.0); MONOCYTES % (AUTO) 9.7 %; NEUTROPHILS # (AUTO) 4.9 10^3/uL (1.5-6.6); NEUTROPHILS % (AUTO) 67.4 %; PLT - PLATELET COUNT 304 10^3/uL (130-450); RED CELL DISTRIBUTION WIDTH 13.2 % (12.0-15.0); WHITE BLOOD COUNT 7.2 x10^3/uL (4.8-10.8)
[2023-07-31 10:01] LABS: ALBUMIN 4.3 g/dL (3.2-5.5); ALBUMIN/GLOBULIN RATIO 1.6 (1.0-2.2); ALKALINE PHOSPHATASE 66 IU/L (42-121); ALT ALANINE AMINOTRANSFERASE 25 IU/L (10-60); AST ASPARTATE AMINOTRANSFERASE 27 IU/L (10-42); BILIRUBIN,TOTAL 0.9 mg/dL (0.2-1.0); BUN - BLOOD UREA NITROGEN 8 mg/dL (6-20); CALCIUM 9.3 mg/dL (8.5-10.3); CARBON DIOXIDE - CO2 32 mmol/L (21-32); CHLORIDE 103 mmol/L (101-111); CHOL/HDL RATIO 3.3 (<4.4); CHOLESTEROL 254 mg/dL; CREATININE 0.8 mg/dL (0.6-1.3); GFR - MDRD 75 (>89); GLUCOSE 93 mg/dL (74-104); HDL CHOLESTEROL 78 mg/dL; LDL CHOLESTEROL,CALCULATED 157 mg/dL; POTASSIUM 3.9 mmol/L (3.5-4.5); SODIUM 140 mmol/L (135-145); TRIGLYCERIDES 95 mg/dL (48-352); VLDL CHOLESTEROL 19 mg/dL
[2023-07-31 10:18] LABS: THYROID STIMULATING HORMONE 2.07 uIU/mL (0.34-5.60)
== END 2023-07-31 09:25 | disposition home or self-care (01) ==
LOC: LAB 09:24
PROVIDERS: ATTEND Physician Assistant Medical
DX: Z00.00 Encounter for general adult medical examination without abnormal findings (principal)
CPT/HCPCS: 36415; 80053; 80061; 83721; 84443; 85025

== ENCOUNTER 2023-08-09 09:15 | Outpatient (CLI) | payer OTHER ==
--- NOTE | 2023-08-12 09:23 | Mammography Report ---
BILATERAL DIGITAL SCREENING MAMMOGRAM 3D/2D: 08/09/2023 CLINICAL: Routine screening. Comparison is made to exams dated: 05/18/2022 mammogram, 05/11/2021 mammogram, 07/02/2019 mammogram, and 06/18/2017 mammogram - [facility]. Both breasts are heterogeneously dense, which may obscure small masses (category c / 51-75% glandular tissue). No significant masses, calcifications, or other findings are seen in either breast. There has been no significant interval change. IMPRESSION: NEGATIVE There is no mammographic evidence of malignancy. A 1 year screening mammogram is recommended. Based on the Tyrer Cuzick model (a risk assessment model) the patient's lifetime risk is 10.9% and he r 10 year risk is 3.0%. According to the ACR, ACS, and NCCN guidelines, an annual breast MRI exam magnus ng with mammogram is recommended if the patients lifetime risk is 20% or greater. This exam was interpreted at Station ID: [id number]. NOTE: For mammograms, a report in lay terms will be sent to the patient. Approximately 15% of breast malignancies will not be visualized mammographically. In the management of a palpable breast mass, a negative mammogram must not discourage biopsy of a clinically suspicious lesion. Electronically Signed By: Thom irene/konrad:08/10/2023 08:57:33 letter sent: No_Letter ACR BI-RADS Category 1: Negative 3341F PARENCHYMAL PATTERN: (D) - The breast(s) demonstrate(s) heterogeneously dense fibroglandular dony castañeda. BI-RADS CATEGORY: (1) - 1 Mammogram [id number] 1 year screening LATERALITY: (B)
== END 2023-08-09 09:16 | disposition home or self-care (01) ==
LOC: DI 09:15
DX: Z12.31 Encounter for screening mammogram for malignant neoplasm of breast (principal); R92.333 Mammographic heterogeneous density, bilateral breasts